=== PATIENT | male | born 1965 | race Asian ===

== ENCOUNTER 2018-11-22 10:46 | Emergency (ER) | payer OTHER ==
[~2018-11-22] VITALS: Ht 172.7 cm; Wt 93.5 kg
[2018-11-22 11:37] LABS: MICROSCOPIC NOT IND
[2018-11-22 11:45] LABS: CULTURE INDICATED? NO
[2018-11-22 11:53] LABS: BASOPHILS # (AUTO) 0.02 x10^3/uL (0-0.1); BASOPHILS % (AUTO) 0 % (0-1); EOSINOPHILS # (AUTO) 0.24 x10^3/uL (0-0.4); EOSINOPHILS % (AUTO) 4 % (1-7); LYMPHOCYTES # (AUTO) 1.48 x10^3/uL (1-3.4); LYMPHOCYTES % (AUTO) 22 % (22-44); MD NO; MEAN CORPUSCULAR HEMOGLOBIN 31.2 pg (27.5-34.5); MEAN CORPUSCULAR HGB CONC 33.4 g/dL (33.2-36.2); MEAN CORPUSCULAR VOLUME 93.5 fL (81-97); MEAN PLATELET VOLUME 8.5 fL (7.4-10.4); MONOCYTES % (AUTO) 8 % (2-9); NEUTROPHILS # (AUTO) 4.43 x10^3/uL (1.8-6.8); NEUTROPHILS % (AUTO) 66 % (42-75); PLATELET COUNT 258 x10^3/uL (130-400); RED BLOOD COUNT 5.79 x10^6/uL (4.38-5.82); RED CELL DISTRIBUTION WIDTH 13.5 % (9.4-14.8)
[2018-11-22 12:02] LABS: ALANINE AMINOTRANSFERASE 43 U/L (12-78); ALBUMIN 4.2 g/dL (3.4-5.0); ANION GAP 8 mmol/L (5-15); CALCIUM 8.8 mg/dL (8.5-10.1); CHLORIDE 103 mmol/L (98-107); CREATININE 1.55 mg/dL (0.7-1.3)
--- NOTE | 2018-11-22 12:02 | NUR ---
PT RESTING IN [facility]. IV ESTABLISHED AND BLOOD AND URINE SENT TO LAB. AWAITING CT.
[2018-11-22 12:04] LABS: ALKALINE PHOSPHATASE 75 U/L (45-117); BILIRUBIN,TOTAL 0.8 mg/dL (0.2-1.0); TOTAL PROTEIN 7.8 g/dL (6.4-8.2)
[2018-11-22] MEDS ORDERED: OMNIPAQUE 350 MG/ML, 100ML BOTTLE ONE (12:34)
[2018-11-22 12:57] VITALS: BP 156/98
--- NOTE | 2018-11-22 12:58 | NUR ---
PT RESTING IN GURNEY WITH CALL LIGHT WITHIN REACH, DAUGHTER AT BEDSIDE. PT UP FOR RECHECK
== END 2018-11-22 13:39 | disposition home or self-care (01) ==
LOC: ED 13:14
DX: R10.31 Right lower quadrant pain (principal)
CPT/HCPCS: 36415; 74177; 80053; 81003; 83690; 85025; 99284; Q9967

== ENCOUNTER → 2018-11-22 | Outpatient (CLI) | payer OTHER | END | disposition home or self-care (01) | LOC: RAD 09:10 | DX: R10.31 Right lower quadrant pain (principal) | CPT/HCPCS: 76857 ==